=== PATIENT | female | born 1960 | race Caucasian/White ===

== ENCOUNTER → 2017-08-07 | Outpatient (CLI) | payer BC ==
--- NOTE | 2017-08-07 10:04 | US ---
EXAMINATION TYPE: US extremity nonvasc mass RT DATE OF EXAM: 08/07/2017 COMPARISON: NONE CLINICAL HISTORY: 57-year-old female anterior R22.31 Right shoulder mass. TECHNIQUE: Targeted sonographic examination at the site of visible and palpable anterior right should er abnormality. FINDINGS: At the palpable site, anterior right shoulder, centered within the subcutaneous tissues just deep to the skin surface and also abutting the underlying fascia, there is an ovoid isoechoic lesion measurin g 3.7 x 3.5 x 0.6 cm with onion skin appearance. The instruction dean reports that this is partially compr essible. No internal vascularity. 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 This is centered in the subcutaneous adipose tissu es measuring 3.7 x 3.5 x 0.6 cm.
== END | disposition home or self-care (01) ==
LOC: RADUSWWP 08:49
PROVIDERS: ATTEND Surgery
DX: D17.21 Benign lipomatous neoplasm of skin and subcutaneous tissue of right arm (principal)

== ENCOUNTER → 2018-03-19 | Outpatient (CLI) | payer BC ==
--- NOTE | 2018-03-22 08:50 | MR ---
EXAMINATION TYPE: MR iac wo/w con DATE OF EXAM: 03/19/2018 COMPARISON: Prior brain MR 03/21/2014 from outside institution HISTORY: Vertigo / Facial Weakness TECHNIQUE: Multiplanar, multisequence images of the brain and brainstem, cerebellopontine angles is performed wi thout and with IV contrast, utilizing 7 mL intravenous Gadavist . Small [id number] high-resolution images through the internal auditory canals FINDINGS: Diffusion weighted images demonstrate no evidence of a recent infarct or other diffusion ab normality. There is no extra-axial fluid collection or significant interval change in white matter s ignal abnormality. Focus of increased signal in the periventricular white matter on the left axial im age 20 shows a peripheral rim of low signal on T2 and inversion recovery sequences which may been pre sent on the previous exam, remote hemorrhage may have been present. The ventricular system and cister nal spaces are normal in size and appearance. The brain volume is age appropriate. Midline structures demonstrate normal morphology. The craniocervical junction appears within normal limits. Post contrast images demonstrate no abnormal enhancement. The dural venous sinuses appear pa tent. The visualized sinuses are similar, inflammatory change present within the maxillary sinuses, a nd the globes are intact. Minimal inflammatory change in the mastoid air cells not significantly vergara ged. IMPRESSION: Nonspecific white matter demyelination not significant changed. No evident cerebelloponti ne angle mass, no abnormal enhancement within the internal auditory canals. Additional findings above .
== END | disposition home or self-care (01) ==
LOC: RADMRIMAIN 06:37
PROVIDERS: ATTEND Otolaryngology
DX: J32.0 Chronic maxillary sinusitis (principal)
CPT/HCPCS: 70553; A9585

== ENCOUNTER → 2022-02-05 | Outpatient (CLI) | payer BC ==
--- NOTE | 2022-02-06 15:24 | MM ---
Reason for Exam: Screening (asymptomatic). Last mammogram was performed 1 year(s) and 5 month(s) ago. Patient History: Menarche at age 15. First Full-Term at age 26. Postmenopausal. Risk Values: Flower 5 year model risk: 1.2%. NCI Lifetime model risk: 6.7%. Prior Study Comparison: 03/30/2017 Bilateral MG 3D screening mammo w/cad, [facility]. 08/17/2020 Bilateral MG 3D screening mammo w/cad, [facility]. Tissue Density: There are scattered fibroglandular densities. Findings: Analyzed By CAD. Pattern appears symmetrical and stable. No significant interval change is evident No suspicious groups of microcalcifications, spiculated or lobular masses, architectural distortion or other secondary signs of malignancy are mammographically apparent. Overall Assessment: Negative, BI-RAD 1 Management: Screening Mammogram of both breasts in 1 year. A negative mammogram report should not preclude additional follow up of suspicious palpable abnormalities. Patient should continue monthly self breast exam. A clinical breast exam by your physician is recommended on an annual basis and results should be correlated with mammographic findings. Electronically signed and approved by: Terry Ferrara D.O. Radiologis
== END | disposition home or self-care (01) ==
LOC: RADMAMWWP 13:22
PROVIDERS: ATTEND Family Medicine
DX: Z12.31 Encounter for screening mammogram for malignant neoplasm of breast (principal); Z78.0 Asymptomatic menopausal state
CPT/HCPCS: 77063; 77067

== ENCOUNTER → 2023-02-24 | Outpatient (CLI) | payer BC ==
--- NOTE | 2023-02-24 13:16 | MM ---
Reason for Exam: Screening (asymptomatic). Last mammogram was performed 1 year(s) and 1 month(s) ago. Patient History: Menarche at age 15. First Full-Term at age 26. Postmenopausal. Risk Values: Flower 5 year model risk: 1.3%. NCI Lifetime model risk: 6.4%. Prior Study Comparison: 03/30/2017 Bilateral MG 3D screening mammo w/cad, [facility]. 08/17/2020 Bilateral MG 3D screening mammo w/cad, [facility]. 02/05/2022 Bilateral MG 3D screening mammo w/cad, [facility]. Tissue Density: There are scattered fibroglandular densities. Findings: Analyzed By CAD. There is no suspicious group of microcalcifications or new suspicious mass. Overall Assessment: Negative, BI-RAD 1 Management: Screening Mammogram of both breasts in [address] [facility] will attempt to contact patient to return for supplemental views and ultrasound if indicated. Patient should continue monthly self-breast exams. A clinical breast exam by your physician is recommended on an annual basis. This exam should not preclude additional follow-up of suspicious palpable abnormalities. Note on Flower scores and lifetime risk: 1. A Flower score greater than 3% is considered moderate risk. If this is the case, consider specialist referral to assess eligibility for a risk reducing agent. 2. If overall lifetime risk for the development of breast cancer is 20% or higher, the patient may qualify for future screening with alternating mammogram and breast MRI. Electronically signed and approved by: Nam Peña DO
== END | disposition home or self-care (01) ==
LOC: RADMAMWWP 07:24
PROVIDERS: ATTEND Family Medicine
DX: Z12.31 Encounter for screening mammogram for malignant neoplasm of breast (principal); Z78.0 Asymptomatic menopausal state
CPT/HCPCS: 77067